=== PATIENT | female | born 1985 | race Caucasian/White ===

== ENCOUNTER → 2016-11-29 | Outpatient (CLI) | payer BC | END | disposition home or self-care (01) | LOC: C.PAPS 09:22 | PROVIDERS: ATTEND Physician Assistant | DX: Z01.419 Encounter for gynecological examination (general) (routine) without abnormal findings (principal) ==

== ENCOUNTER → 2017-06-23 | Outpatient (CLI) | payer BC ==
[2017-06-23 10:22] LABS: FOLLICLE STIMULAT HORMONE 5.42 IU/L
== END | disposition home or self-care (01) ==
LOC: C.LAB1850 08:29
PROVIDERS: ATTEND Obstetrics & Gynecology
DX: N97.9 Female infertility, unspecified (principal)

== ENCOUNTER → 2017-07-05 | Outpatient (CLI) | payer BC ==
[2017-07-05 14:13] LABS: FOLLICLE STIMULAT HORMONE 10.46 IU/L
== END | disposition home or self-care (01) ==
LOC: C.RAD 11:19
PROVIDERS: ATTEND Obstetrics & Gynecology
DX: N97.9 Female infertility, unspecified (principal)

== ENCOUNTER → 2017-07-12 | Outpatient (CLI) | payer BC ==
--- NOTE | 2017-07-12 10:48 | DIAGNOSTIC IMAGING REPORT ---
HYSTEROSALPINGOGRAM CLINICAL HISTORY: 32 years-old Female presenting with INFERTILITY *DR HAMILTON DOING*. TECHNIQUE: The cervix was cannulated by the rubber chemist-scientific recruiter. Water soluble contrast was instilled into the uterus under fluoroscopic guidance. Multiple spot images were obtained. COMPARISON: None. FINDINGS: Retroverted uterus limits evaluation. Allowing for this, the uterine cavity is normal in size and shape. The fallopian tubes are patent. Free peritoneal spillage observed bilaterally. Fluoroscopy dosage (mGy): Not available. Fluoroscopy time: 2 minutes. Number of fluoroscopic spot images: 6. IMPRESSION: Retroverted uterus somewhat limits evaluation. Allowing for this, patent fallopian tubes bilaterally. Electronically signed by: Moises Price M.D. 07/12/2017 10:46 AM Dictated Date/Time: 07/12/2017 10:44 AM
--- NOTE | 2017-07-12 11:32 | OPERATIVE REPORT ---
DATE OF OPERATION: 07/12/2017 PROCEDURE: Hystersalpingogram. INDICATIONS: The patient is a 32-year-old G0 who is undergoing fertility workup. Prior to referral to [facility] for further workup and treatments, was recommended by Dr. Mcnally to have a hystersalpingogram. FINDINGS: Retroverted uterus with no obvious intrauterine defects and bilateral tubal visualization as well as bilateral radiopaque spill. DESCRIPTION OF PROCEDURE: The patient was seen in the radiology department. All questions were answered. The procedure was explained and discussed. She is agreeable to proceed. She was positioned comfortably on the x-ray table. A speculum was placed in the vagina. The cervix was visualized. The cervix and vagina were swabbed with Betadine-soaked sponges. The anterior lip of the cervix was grasped with a single tooth tenaculum. The uterine manipulator was placed at the cervix. The speculum was removed. The patient was repositioned on the table for imaging. On the first attempt, the radiopaque dye appeared to spill into the vagina rather than into the uterus. Therefore, the patient was repositioned, all instruments were removed, and a second attempt was made, this time an Allis clamp was used to grasp the anterior lip of the cervix due to some bleeding noted from the tenaculum. The catheter was reinserted into the cervix and the patient was repositioned on the table and a second attempt was made, this time the uterine cavity was visualized, was full of radiopaque dye as well as bilateral spill through the tubal ostium. The patient was notified verbally of the results. All instruments were removed from the vagina. A sponge was used to ensure excellent hemostasis, this was achieved. The patient tolerated the procedure well. The results of the study will be forwarded to Dr. Mcnally as well as [facility]. I attest to the content of the Intraoperative Record and any orders documented therein. Any exception s are noted below.
== END | disposition home or self-care (01) ==
LOC: C.RAD 09:28
PROVIDERS: ATTEND Obstetrics & Gynecology
DX: N97.9 Female infertility, unspecified (principal)

== ENCOUNTER → 2018-01-04 | Outpatient (CLI) | payer BC | END | disposition home or self-care (01) | LOC: C.LABBC 12:16 | PROVIDERS: ATTEND Specialist | DX: Z31.41 Encounter for fertility testing (principal) ==

== ENCOUNTER 2025-01-25 12:08 | Inpatient (IN) ==
[2025-01-25] MEDS ORDERED: CALCIUM CARBONATE 500 MG CHEWABLE TAB PO PRN (12:53)
[2025-01-25] MEDS ORDERED: ACETAMINOPHEN 325 MG TAB PO PRN (12:53)
[2025-01-25 13:01] VITALS: TEMP 98.2
[2025-01-25 13:39] LABS: Hematocrit (blood only) 35.0 % (37.0-47.0); Hemoglobin 12.0 g/dl (12.0-16.0); Mean Corpuscular Hemoglobin 30.3 pg (25.0-34.0); Mean Corpuscular Volume 88.4 fL (80.0-100.0); Platelet Count 185 K/uL (130-400); RDW Standard Deviation 43.7 fL (36.4-46.3); Red Blood Count 3.96 M/uL (4.20-5.40); White Blood Count 9.82 K/ul (4.8-10.8)
[2025-01-25] MEDS: TERBUTALINE SULFATE 1 MG/ML VIAL SQ PRN (13:53)
--- NOTE | 2025-01-25 15:12 | History & Physical Report ---
Date of Service January 25, 2025 Assessment & Plan (1) Breech presentation: Plan: Merry is a 40-year-old G1, P0 presents for external cephalic version secondary to persistent breech presentation as detailed per note. A successful external cephalic version noted today. Reactive NST noted both prior and following procedure. Will continue to continuous monitoring for 4 hours postprocedure and if reactive at that point we will be stable for discharge. Discussed signs and symptoms of placental abruption and answered all questions. Greater than 30 minutes spent in review of history and discussion in addition to the external cephalic version proceed. (2) Supervision of elderly primigravida: (3) resulting from in vitro fertilization, antepartum: (4) Successful external cephalic version: Admission and Anticipated Discharge Date Admission Date: January 25, 2025 History of Present Illness Primary Care Provider: Janine Jones DO Merry is a 40-year-old currently at 37 weeks 6 days gestational age presents for an external cephalic version secondary to persistent breech presentation. Had ultrasound yesterday confirming breech presentation with adequate fluid and no nuchal cord noted. Bedside ultrasound performed today again confirms breech position with normal appearing fluid and no nuchal cord present. I discussed the procedure in detail including risks and benefits. We specifically discussed the risks of placental abruption, injury, cord prolapse, rupture of membranes, and need for emergency . Discussed the incidence of all of these outcomes. Discussed the likelihood of success of the procedure and likelihood of a vaginal delivery if version is successful. Consent forms reviewed and signed and all questions answered. Allergies Allergy/AdvReac Type Severity Reaction Status Date / Time nickel Allergy Mild Rash Verified 01/25/25 13:03 Home Medications Medication Instructions Recorded Confirmed Type prenat.vits,ash,qmz-ptcb-vewzx 1 tab PO DAILY 08/14/24 01/25/25 History aspirin [Adult Low Dose Aspirin] 81 mg PO DAILY 09/20/24 01/25/25 History Patient History Surgical History History of hysterotomy S/P wisdom tooth extraction Family History Father Dementia Hypertension Social History Smoking Status: Never smoker Second Hand Exposure: No; Do You Dip or Chew Tobacco: No; Tobacco Cessation Education Requested by Patient: No Hx Alcohol Use: No Hx Substance Use: No Preferred Language: Cypriot Communication Ability: Effective Small Package And Bundle Sorter Clerk Required: No Beliefs That Will Affect Care: None marital status: marital status details: : Yi (31) [phone] Current Living Situation: Spouse Current Living Situation Comment: Pt lives with her , Yi and one dog. current occupational status: employed current occupation: Physical Therapist Other Information That Helps Us Care for You: No Feels Safe at Home: Yes Safety Concerns: Feels Safe At This Time Assistive Devices: None Physical Exam Genitourinary: OB Exam Monitor Tracing: + external FHT monitor used, + external uterine monitor used, + category I and + normal FHT variability Breech presentation confirmed on ultrasound. Grossly normal-appearing fluid volume and no nuchal cord present. Reactive NST noted prior to initiating procedure. Procedure: Breech presentation confirmed prior to initiating procedure. The head and caudal end of the baby identified and counter clockwise pressure applied at the caudal and cephalic ends. Ultrasound showed unsuccessful counterclockwise rotation. Procedure was tried with clockwise rotation without success and baby was put back on the monitoring with a transient deceleration noted with recovery to a normal heart rate with moderate variability and accelerations. IM terbutaline given and after patient noted increased heart rate from the medication the procedure was then reinitiated with counterclockwise rotation with pressure applied to the cephalic and caudal end of the . The procedure was felt to be successful and was confirmed by ultrasound. monitoring reapplied with normal heart rate and moderate variability noted. No significant contractions noted on tocometer after procedure and no bleeding or significant abdominal pain noted. Results & Data Vital Signs (Past 12 Hours) Vital Signs Temp Pulse Resp BP O2 Del Method 01/25/25 12:47 76 116/73 01/25/25 12:21 36.8 C 76 18 116/73 Room Air Coding Level of Care Code 86647 OP VST EST MOD 30 MIN Diagnoses Breech presentation, single or unspecified fetus O32.1XX0 Fetus number: single or unspecified fetus Encounter for supervision of primigravida of advanced maternal age in third trimester O09.513 Trimester: third trimester resulting from in vitro fertilization, antepartum O09.819 Successful external cephalic version CPT Codes [facility] Procedure Codes - 85218 External cephalic version: 15610 External cephalic version ([id number]) [facility] Procedure Codes - 03426 NST: 68492 NST ([id number]) (1) Breech presentation Fetus number: single or unspecified fetus Qualified Code(s): O32.1XX0 - Maternal care for breech presentation, not applicable or unspecified (2) Supervision of elderly primigravida Trimester: third trimester Qualified Code(s): O09.513 - Supervision of elderly primigravida, third trimester
[2025-01-25 17:33] VITALS: BP 107/64; RESP 16
[2025-01-25 17:53] VITALS: O2SAT 97
[2025-01-25 17:58] VITALS: PULSE 86
== END 2025-01-25 16:10 | disposition home or self-care (01) | DRG 833 ==
LOC: 4S1 12:08